=== PATIENT | male | born 1965 | race African-American/Black ===

== ENCOUNTER 2017-04-07 00:27 | Emergency (ER) | payer MEDICARE, MEDICAID ==
[~2017-04-07] VITALS: Ht 175.3 cm; Wt 110.0 kg
[~2017-04-07 00:27] MED LIST: COLC1TAB15 PO; INDO50CA PO; LISI-360 PO; PRIL10CA PO; TERB1%T TOP
[2017-04-07 00:28] VITALS: BP 203/114; PULSE 87; RESP 18; TEMP 99.2; O2SAT 96
[2017-04-07] MEDS ORDERED: METO25TA3 PO (00:43)
[2017-04-07] MEDS ORDERED: ACETAMINOPHEN/HYDROcodone 325 MG/7.5 MG TAB PO ONE (00:45)
[2017-04-07] MEDS ORDERED: KETOROLAC TROMETHAMINE 60 MG/2 ML (IM) VIAL IM ONE (00:45)
--- NOTE | 2017-04-07 00:47 | PD ---
HPI Chief Complaint: Pain: Acute or Chronic Time Seen by Provider: 00:39 Travel History International Travel<30 days: No Contact w/Intl Traveler<30days: No Traveled to known affect area: No History of Present Illness HPI 52-year-old male presents to the emergency department for several days of progressive worsening left great toe pain. Patient notes redness and swelling at the first MTP. Patient reports history of gout. Patient states symptoms and pain are same as previous gout attack. Patient has not taken any over-the- counter acetaminophen or ibuprofen. Patient states he cannot take ibuprofen on a regular basis as he has had a prior history of peptic ulcer disease. Patient rates pain as severe. Patient was also noted in triage to have very elevated blood pressure. Patient states that the reason his blood pressure is elevated is because he smoked a cigarette on the hospital. Patient states he is presently on metoprolol twice daily and lisinopril once daily for blood pressure control and has been compliant with his medications. Patient denies other concerns or complaints. No fever no chills no nausea no vomiting no headache no chest pain or shortness of breath palpitations no abdominal pain no flank pain dysuria frequency urgency hematuria joint pain or swelling except isolated to the left great toe. Patient denies any injury or fall. Patient takes no allopurinol and does not have a prescription for colchicine. Patient did not contact his primary care provider for symptoms. [facility]/30[facility] Past Medical History Narrative Medical Hypertension, gouty arthritis, peptic ulcer disease, herniorrhaphy, alcohol use tobacco use; nursing notes reviewed Cardiovascular Problems: Yes (htn) Diminished Hearing: No Gastrointestinal Disorders: Yes (TREATED FOR H-PYLORI) Hypertension: Yes Ulcer: Yes Influenza Vaccination: No Past Surgical History Abdominal Surgery: Yes (LEFT HERNIA REPAIR) Other Surgery: Yes (LEFT INGUINAL HERNIA REPAIR 1995) Social History Alcohol Use: Yes ("HEAVY DRINKER") Tobacco Use: Yes (2 PACK A DAY 20 YRS) Substance Use: No Allergies-Medications (Allergen,Severity, Reaction): Uncoded Allergies: SULFA EYE GTT (Allergy, Severe, REDNESS, 05/15/10) Reported Meds & Prescriptions Reported Meds & Active Scripts Active Reported Metoprolol Tartrate 25 Mg Tab 25 Mg PO BID Prilosec (Omeprazole) 10 Mg Cap 10 Mg PO DAILY Lisinopril 10 mg (Lisinopril) 10 Mg Tab 1 Tab PO DAILY Review of Systems Except as stated in HPI: all other systems reviewed are Neg General / Constitutional: No: Fever, Chills HENT: No: Congestion Cardiovascular: No: Chest Pain or Discomfort Respiratory: No: Shortness of Breath Gastrointestinal: No: Abdominal Pain Genitourinary: No: Flank Pain Musculoskeletal: Positive: Pain (left great toe) Skin: Positive Rash Neurologic: No: Weakness Psychiatric: No: Anxiety Hematologic/Lymphatic: No: Lymph Node Enlargement Physical Exam Narrative GENERAL: Well-developed well-nourished male in obvious discomfort no respiratory distress GCS 15; BP: 203/114 SKIN: Warm and dry. HEAD: Normocephalic. EYES: No scleral icterus. No injection or drainage. NECK: Supple, trachea midline. No JVD or lymphadenopathy. CARDIOVASCULAR: Regular rate and rhythm without murmurs, gallops, or rubs. RESPIRATORY: Breath sounds equal bilaterally. No accessory muscle use. GASTROINTESTINAL: Abdomen soft, non-tender, nondistended. MUSCULOSKELETAL: No cyanosis, or edema. Attention left foot first MTP red swollen tender warm intact range of motion but pain on range of motion capillary refill less than 2 seconds sensory exam intact. BACK: Nontender without obvious deformity. No CVA tenderness. Data Data Last Documented VS Vital Signs Date Time Temp Pulse Resp B/P (MAP) Pulse Ox O2 Delivery O2 Flow Rate FiO2 04/07/17 01:57 85 18 175/99 (124) 95 Room Air 04/07/17 00:28 99.2 Orders Orders Ketorolac Inj (Toradol Inj) (04/07/17 00:45) Foot, Complete ([id number]) (04/07/17 ) Acetamin-Hydrocod 325-7.5 Mg ([place] 7.5 (04/07/17 00:45) Clonidine (Catapres) (04/07/17 01:30) MDM Medical Decision Making Medical Screen Exam Complete: Yes Emergency Medical Condition: Yes Medical Record Reviewed: Yes Interpretation(s) Left foot x-ray: Soft tissue swelling no soft tissue gas no radiopaque foreign body no acute bony injury/fracture identified Last Impressions Foot X-Ray 04/07/17 0000 Signed Impressions: Service Date/Time: Friday, April 07, 2017 00:56 - CONCLUSION: Hallux valgus and osteoarthritic findings of the great toe MTP joint. No focal bone erosion identified. Anthony Duff MD Differential Diagnosis Foot pain, gouty arthritis, stress fracture, septic arthritis, cellulitis Narrative Course Patient given hydrocodone 7.5/325 times one dose injection of Toradol 60 mg IM and imaging study of the toe performed and repeat blood pressure obtained Imaging study reviewed by me reveals no acute bony injury soft tissue swelling is noted no radiopaque foreign body is identified and no soft tissue gas is noted exam and history are consistent with gouty arthritis. Uncontrolled hypertension reflects most likely ongoing poorly controlled hypertension as well as pain as well as alcohol use and may reflect impact of tobacco use. We' ll reassess patient after 30 minutes of medications on board for pain relief and may require clonidine times one dose to manage blood pressure better. At 2:17 AM patient clinically improved pain decreasing and blood pressure slowly trending downward; patient provided prescription for hydrocodone for pain management clonidine as needed to supplement his maintenance blood pressure medication and encouraged to follow-up with his primary care provider on Sunday. Diagnosis Primary Impression: Gouty arthritis of left great toe Additional Impression: Hypertension Referrals: Primary Care Physician 2 days Patient Instructions: General Instructions, Narcotic given in the ED Additional Instructions: Elevate left foot Take pain medication as prescribed as needed May attempt ibuprofen/Advil/Motrin 800 mg as often as every 8 hours for pain associated with inflammation Take medication for gout as prescribed Take clonidine as prescribed as needed for blood pressure on an as-needed basis while continuing your chronically prescribed blood pressure medication from your primary care provider Return to the emergency department for any concerns or change in condition Take acetaminophen/Tylenol as needed for fever 100.4F or greater Med/Other Pt SpecificInfo: Prescription(s) given Scripts Colchicine (Colchicine) 0.6 Mg Cap 0.6 MG PO BID for Gout, #6 CAP 0 Refills Prov: Naina Martin MD 04/07/17 Clonidine (Clonidine) 0.1 Mg Tab 0.1 MG PO Q12HR Y for SBP>180, DBP>95, #6 TAB 0 Refills Prov: Naina Martin MD 04/07/17 Hydrocodone/Acetaminophen (Hydrocodone-Acetamin 5-325 mg) 5 Mg-325 Mg Tablet 5 MG PO Q6HR Y for PAIN GREATER THAN 5, #7 Prov: Naina Martin MD 04/07/17 Disposition: 01 DISCHARGE HOME Condition: Stable Naina Martin MD Apr 07, 2017 00:47
--- NOTE | 2017-04-07 01:07 | RADRPT ---
EXAM DATE/TIME: 04/07/2017 00:56 [place] COMPARISON: No previous studies available for comparison. INDICATIONS : Patient has history of gout- says pain is the same as before MEDICAL HISTORY : Gout SURGICAL HISTORY : None. ENCOUNTER: Initial ACUITY: 1 week PAIN SCORE: 8/10 LOCATION: Left Foot FINDINGS: 3 views of the left foot. Mild hallux valgus. Small osteophytes of the great toe metatarsophalangeal joint along with mild subchondral sclerosis. No focal bone erosion identified. No evidence of joint n arrowing. CONCLUSION: Hallux valgus and osteoarthritic findings of the great toe MTP joint. No focal bone erosion iraida Duff MD on April 07, 2017 at 1:03 Board Certified Radiologist. This report was verified electronically.
[2017-04-07 01:23] VITALS: BP 190/111; PULSE 88; RESP 18; O2SAT 96
[2017-04-07] MEDS ORDERED: cloNIDine HCL 0.1 MG TAB PO ONE (01:30)
[2017-04-07 01:57] VITALS: BP 175/99; PULSE 85; RESP 18; O2SAT 95
[2017-04-07] MEDS ORDERED: CLON0.1T PO (02:17)
[2017-04-07] MEDS ORDERED: COLC1CAP3 PO (02:17)
[2017-04-07] MEDS ORDERED: HYDR-3516 PO (02:17)
== END 2017-04-07 02:35 | disposition home or self-care (01) ==
LOC: NEPC 00:27
DX: M10.9 Gout, unspecified (principal); I10 Essential (primary) hypertension; F17.200 Nicotine dependence, unspecified, uncomplicated
CPT/HCPCS: 73630; 96372; 99284; J1885